=== PATIENT | male | born 1995 | race Hispanic/Latino ===

== ENCOUNTER 2022-11-28 09:12 | Inpatient (IN) | payer BC ==
[2022-11-28 09:51] LABS: #Basophils 0.1 thou/uL (0.0-0.2); #Eosinphils 0.1 thou/uL (0.0-0.7); #Lymphocytes 1.3 thou/uL (1.20-3.40); #Monocytes 0.5 thou/uL (0.11-0.59); #Neutrophils 3.1 thou/uL (1.40-6.50); %Basophils 1.6 % (0.0-1.0); %Eosinophils 1.1 % (0.0-10.0); %Lymphocytes 26.1 % (21.0-51.0); %Monocytes 9.9 % (0.0-10.0); %Neutrophils 61.3 % (42.0-75.0); Hemoglobin 13.5 g/dL (14.0-18.0); Mean Corpuscular HGB CONC 33.7 g/dL (32.0-36.0); Mean Corpuscular Hemoglobin 28.2 pg (27.0-31.0); Mean Corpuscular Volume 83.8 fl (78.0-98.0); Mean Platelet Volume 8.2 fL (7.4-10.4); Platelet Count 181 10x3/uL (130-400); RBC Distribution Width 14.3 % (11.5-14.5); Red Blood Cell (RBC) Count 4.79 mill/uL (4.70-6.10); White Blood Cell (WBC) Count 5.1 10x3/uL (4.8-10.8)
[2022-11-28] MEDS ORDERED: Metoprolol Tartrate 5 MG/5 ML VIAL ONE (10:15)
[2022-11-28 10:18] LABS: ALT (SGPT) 21 U/L (8-55); AST (SGOT) 18 U/L (5-34); Albumin 4.7 g/dL (3.5-5.0); Alkaline Phosphatase 114 U/L (40-110); Anion Gap 16 mmol/L (10-20); BUN (Urea Nitrogen) 12 mg/dL (8.9-20.6); Bilirubin, Total 0.5 mg/dL (0.2-1.2); Calc. Creatinine Clearance 0 mL/min (70-130); Calcium 9.8 mg/dL (7.8-10.44); Carbon Dioxide 23 mmol/L (22-29); Chloride 102 mmol/L (98-107); Estimated GFR 106; Globulin 2.8 g/dL (2.4-3.5); Glucose 75 mg/dL (70-105); Potassium 4.3 mmol/L (3.5-5.1); Protein, Total 7.5 g/dL (6.0-8.3); Sodium 137 mmol/L (136-145)
[2022-11-28 10:44] LABS: Lipase 6 U/L (8-78)
[2022-11-28] MEDS ORDERED: Acetaminophen 500 MG TAB PO PRN (14:13)
[2022-11-28] MEDS ORDERED: Ondansetron ODT 4 MG TAB PO PRN (14:13)
[2022-11-28] MEDS ORDERED: Ondansetron PF 4 MG/2 ML Vial IVP PRN (14:13)
[2022-11-28] MEDS ORDERED: Digoxin 0.5 MG/2 ML AMP SLOW IVP SCH (14:15)
[2022-11-28] MEDS ORDERED: Flecainide 50 MG TAB PO SCH (17:15)
[2022-11-28 17:49] VITALS: BMI 22.8
[2022-11-28] MEDS: Sodium Chloride 0.9% 1,000 ML IV SCH ×3 (18:03→22:05)
[2022-11-28] MEDS: Famotidine 20 MG TAB PO SCH (21:49)
[2022-11-29] MEDS: Sodium Chloride 0.9% 1,000 ML IV SCH ×3 (04:38→11:39)
[2022-11-29 05:07] LABS: #Eosinphils 0.1 thou/uL (0.0-0.7); #Lymphocytes 1.9 thou/uL (1.20-3.40); #Monocytes 0.8 thou/uL (0.11-0.59); #Neutrophils 3.2 thou/uL (1.40-6.50); %Basophils 0.4 % (0.0-1.0); %Eosinophils 2.1 % (0.0-10.0); %Lymphocytes 31.3 % (21.0-51.0); %Monocytes 13.2 % (0.0-10.0); Mean Corpuscular HGB CONC 32.6 g/dL (32.0-36.0); Mean Corpuscular Hemoglobin 27.7 pg (27.0-31.0); Mean Corpuscular Volume 85.1 fl (78.0-98.0); Mean Platelet Volume 8.4 fL (7.4-10.4); Platelet Count 178 10x3/uL (130-400); RBC Distribution Width 14.2 % (11.5-14.5); Red Blood Cell (RBC) Count 3.97 mill/uL (4.70-6.10)
[2022-11-29 05:32] LABS: Anion Gap 11 mmol/L (10-20); BUN (Urea Nitrogen) 12 mg/dL (8.9-20.6); Calc. Creatinine Clearance 90 mL/min (70-130); Calcium 8.3 mg/dL (7.8-10.44); Carbon Dioxide 24 mmol/L (22-29); Chloride 110 mmol/L (98-107); Estimated GFR 96; Glucose 116 mg/dL (70-105); Potassium 4.5 mmol/L (3.5-5.1); Sodium 140 mmol/L (136-145)
[2022-11-29] MEDS ORDERED: Mesalamine DR 400 mg Capsule PO SCH (09:00)
[2022-11-29] MEDS ORDERED: Non-Formulary Item 1 EACH (Mesalamine [Mesalamine] 1.2 GM Tablet.Dr) PO SCH (09:00)
[2022-11-29] MEDS ORDERED: Non-Formulary Item 1 EACH (Dextroamphetamine/Amphetamine [Adderall Xr 20 Mg Capsule] 20 M PO SCH (09:00)
[2022-11-29] MEDS: Famotidine 20 MG TAB PO SCH ×2 (09:30→10:00)
[2022-11-29 12:02] VITALS: BP 119/67; TEMP 98
== END 2022-11-29 14:57 | disposition home or self-care (01) | DRG 309 ==
LOC: ERS 09:12 → 2NO 14:13
PROVIDERS: ADMIT Hospitalist; ATTEND Hospitalist
DX: I48.0 Paroxysmal atrial fibrillation (principal); K51.20 Ulcerative (chronic) proctitis without complications; F90.9 Attention-deficit hyperactivity disorder, unspecified type; Z79.899 Other long term (current) drug therapy
CPT/HCPCS: 36415; 71045; 80048; 80053; 83690; 83735; 84443; 84484; 85025; 93005; 93306; 96374; J7050

== ENCOUNTER 2024-03-10 14:23 | Emergency (ER) | payer BC ==
[2024-03-10 15:15] LABS: #Basophils 0.03 10x3/uL (0.0-0.2); %Basophils 0.3 % (0.0-1.0); %Eosinophils 1.4 % (0.0-10.0); %Neutrophils 71.9 % (42.0-75.0); Hematocrit 45.8 % (42.0-52.0); Hemoglobin 15.1 g/dL (14.0-18.0); Mean Corpuscular Volume 90.9 fL (78.0-98.0); Mean Platelet Volume 8.9 fL (7.4-10.4); Platelet Count 269 10x3/uL (130-400); RBC Distribution Width 12.3 % (11.5-14.5); Red Blood Cell (RBC) Count 5.04 mill/uL (4.70-6.10)
[2024-03-10 15:28] LABS: ALT (SGPT) 26 U/L (8-55); AST (SGOT) 18 U/L (5-34); Albumin 3.9 g/dL (3.5-5.0); Alkaline Phosphatase 100 U/L (40-110); Anion Gap 16 mmol/L (10-20); BUN (Urea Nitrogen) 16 mg/dL (8.9-20.6); Bilirubin, Total 0.6 mg/dL (0.2-1.2); Calc. Creatinine Clearance 0 mL/min (70-130); Calcium 9.8 mg/dL (7.8-10.44); Carbon Dioxide 27 mmol/L (22-29); Chloride 104 mmol/L (98-107); Estimated GFR 92; Globulin 3.8 g/dL (2.4-3.5); Glucose 96 mg/dL (70-105); Potassium 4.7 mmol/L (3.5-5.1); Protein, Total 7.7 g/dL (6.0-8.3); Sodium 142 mmol/L (136-145)
== END 2024-03-10 18:10 | disposition home or self-care (01) ==
LOC: ERS 14:23
DX: K61.1 Rectal abscess (principal)
CPT/HCPCS: 72193; 80053; 85025; 96374; J0665; J1885; Q9967

== ENCOUNTER 2024-03-11 20:41 | Inpatient (IN) | payer BC ==
[~2024-03-11 20:41] MED LIST: Iopamidol-370 76% 500 ML MDV (1 ML CHARGE) ONE
[2024-03-11] MEDS ORDERED: Acetaminophen 500 MG TAB ONE ×2 (21:10→21:54)
[2024-03-11] MEDS ORDERED: Ondansetron ODT 4 MG TAB ONE (21:11)
[2024-03-11 21:44] LABS: Hematocrit 45.2 % (42.0-52.0); Hemoglobin 14.6 g/dL (14.0-18.0); Mean Corpuscular HGB CONC 32.3 g/dL (32.0-36.0); Platelet Count 257 10x3/uL (130-400); RBC Distribution Width 12.2 % (11.5-14.5); Red Blood Cell (RBC) Count 4.86 mill/uL (4.70-6.10)
[2024-03-11 21:58] LABS: ALT (SGPT) 22 U/L (8-55); AST (SGOT) 18 U/L (5-34); Albumin 3.9 g/dL (3.5-5.0); Alkaline Phosphatase 97 U/L (40-110); Anion Gap 14 mmol/L (10-20); BUN (Urea Nitrogen) 14 mg/dL (8.9-20.6); Bilirubin, Total 0.5 mg/dL (0.2-1.2); Calc. Creatinine Clearance 0 mL/min (70-130); Calcium 9.4 mg/dL (7.8-10.44); Carbon Dioxide 28 mmol/L (22-29); Chloride 98 mmol/L (98-107); Estimated GFR 95; Glucose 109 mg/dL (70-105); Potassium 3.7 mmol/L (3.5-5.1); Protein, Total 7.9 g/dL (6.0-8.3); Sodium 136 mmol/L (136-145)
[2024-03-11 22:12] LABS: Band 54 % (5-11); Eosinophils 1 % (0-10); Lymphocytes 7 % (21-51); Monocytes 9 % (0-10); Neutrophil 27 % (42-75); Platelet Adequacy Comment Platelets Normal; Reactive Lymphocytes 1 % (0-10)
[2024-03-11] MEDS ORDERED: Ibuprofen 200 MG TAB ONE (22:21)
[2024-03-11] MEDS ORDERED: Morphine 4 MG/ML VIAL ONE (22:21)
[2024-03-11 23:02] LABS: Magnesium 1.8 mg/dL (1.6-2.6)
[2024-03-11 23:22] LABS: Influenza A by NAA Not Detected (NotDetected); Influenza B by NAA Not Detected (NotDetected); SARS-CoV-2 NAA Rapid Test Not Detected (NotDetected)
[2024-03-12 00:44] LABS: Bacteria/HPF None Seen HPF (None Seen); Bilirubin Negative (Negative); Blood, Urine Negative (Negative); CAUTI Indications for Culture Dysuria,urgency,freq; Clarity Clear (Clear); Glucose, Urine (Dipstick) Normal (Negative); Ketone, Urine 20 mg/dL (Negative); Leukocyte Negative Leu/uL (Negative); Nitrite Negative (Negative); Protein, Urine (Dipstick) 10 mg/dL (Neg-Trace); RBC/HPF 0-3 HPF (0-3); Squamous Epithelial None Seen HPF (0-3); Urobilinogen Normal mg/dL (Less than 2); WBC/HPF 0-3 HPF (0-3)
[2024-03-12 00:45] LABS: Specific Gravity, Urine 1.049 (1.002-1.036)
[2024-03-12 00:46] LABS: Urine Culture Reflex No No
[2024-03-12] MEDS ORDERED: Piperacillin/Tazobactam 4.5 GM VIAL ONE (01:24)
[2024-03-12] MEDS ORDERED: Sodium Chloride 0.9% 100 ML ONE (01:24)
[2024-03-12] MEDS ORDERED: Acetaminophen 325 MG TAB PO PRN (01:27)
[2024-03-12] MEDS ORDERED: traMADol HCl 50 MG TAB PO PRN (01:27)
[2024-03-12] MEDS ORDERED: Enoxaparin 30 MG (0.3 mL) SYRINGE SC SCH ×2 (01:30→09:00)
[2024-03-12] MEDS ORDERED: Morphine 2 MG/ML VIAL SLOW IVP PRN (01:33)
[2024-03-12] MEDS ORDERED: Morphine 4 MG/ML VIAL ONE (01:48)
[2024-03-12] MEDS ORDERED: Enoxaparin 40 MG (0.4 mL) SYRINGE SC SCH ×2 (02:00→21:00)
[2024-03-12 02:26] VITALS: BMI 23.8
[2024-03-12] MEDS: Lactated Ringer's 1,000 ML IV SCH (03:05)
[2024-03-12 03:44] LABS: Hematocrit 38.9 % (42.0-52.0); Hemoglobin 12.6 g/dL (14.0-18.0); Mean Corpuscular HGB CONC 32.4 g/dL (32.0-36.0); Mean Corpuscular Volume 92.6 fL (78.0-98.0); Mean Platelet Volume 9.1 fL (7.4-10.4); Platelet Count 185 10x3/uL (130-400); RBC Distribution Width 12.3 % (11.5-14.5)
[2024-03-12 03:48] LABS: Anion Gap 12 mmol/L (10-20); BUN (Urea Nitrogen) 10 mg/dL (8.9-20.6); Calc. Creatinine Clearance 105 mL/min (70-130); Calcium 8.4 mg/dL (7.8-10.44); Carbon Dioxide 27 mmol/L (22-29); Chloride 99 mmol/L (98-107); Estimated GFR 112; Glucose 106 mg/dL (70-105); Sodium 134 mmol/L (136-145)
[2024-03-12] MEDS: Ondansetron PF 4 MG/2 ML Vial IVP PRN (03:53)
[2024-03-12 04:06] LABS: HIV (1/2) Antibody/Antigen NONREACTIVE (NonReactive); HIV 1/2 INDEX 0.05 S/CO (<1.00)
[2024-03-12 04:35] LABS: Band 49 % (5-11); Lymphocytes 17 % (21-51); Metamyelocyte 1 % (0-0); Monocytes 17 % (0-10); Neutrophil 16 % (42-75); Platelet Adequacy Comment Platelets Normal; Reactive Lymphocytes 1 % (0-10)
[2024-03-12] MEDS: Piperacillin/Tazobactam 3.375 GM in Sodium Chloride 0.9% 100 ML IVPB SCH (05:11)
[2024-03-12] MEDS: methylPREDNISolone Sod Succ 40 MG VIAL IVP SCH (05:12)
[2024-03-12] MEDS ORDERED: Piperacillin/Tazobactam 4.5 GM in Sodium Chloride 0.9% 100 ML IVPB SCH (06:00)
[2024-03-12] MEDS ORDERED: Hydrocortisone Acetate 25 MG Suppository PR SCH (21:00)
[2024-03-12] MEDS: Morphine 4 MG/ML VIAL SLOW IVP PRN (21:37)
[2024-03-13 05:46] LABS: Chlam.trachomatis by PCR,Urine Not Detected (NotDetected); GC N.gonorrhoeae PCR,UrineVOID Not Detected (NotDetected)
[2024-03-13] MEDS ORDERED: Mesalamine DR 400 mg Capsule PO SCH (09:00)
[2024-03-13] MEDS: GoLYTELY 4,000 ml Bottle PO SCH (19:19)
[2024-03-14] MEDS: Pantoprazole 40 MG VIAL IVP SCH (09:00)
[2024-03-14] MEDS ORDERED: Lidocaine 1% PF 5 ML VIAL ONE (09:27)
[2024-03-14] MEDS ORDERED: PROPOFOL 40 ML ONE (09:27)
[2024-03-15 11:43] VITALS: BP 126/75; TEMP 98.4
[2024-03-17 09:16] LABS: QuantiFERON-TB Gold Plus Indeterminate (Negative)
== END 2024-03-15 17:09 | disposition home or self-care (01) | DRG 386 ==
LOC: ERS 20:41 → SJJU 03-12 01:28
PROVIDERS: ADMIT Internal Medicine; ATTEND Internal Medicine
PROC: 0DBG8ZX Excision of Left Large Intestine, Via Natural or Artificial Opening Endoscopic, Diagnostic (ICD-10-PCS; principal; 2024-03-14)
DX: K51.90 Ulcerative colitis, unspecified, without complications (principal); K61.1 Rectal abscess; R65.10 Systemic inflammatory response syndrome (SIRS) of non-infectious origin without acute organ dysfunction; K62.89 Other specified diseases of anus and rectum; F90.9 Attention-deficit hyperactivity disorder, unspecified type; I48.0 Paroxysmal atrial fibrillation; Z91.010 Allergy to peanuts; Z91.018 Allergy to other foods; Z79.899 Other long term (current) drug therapy
CPT/HCPCS: 36415; 71045; 72193; 74177; 80048; 80053; 81001; 83605; 83735; 85025; 86480; 87040; 87324; 87389; 87449; 87491; 87591; 88305; 96374; 96375; 96376; C9113; J0665; J1885; J2270; J2405; J2543; J2704; J2920; J3490; J7120; Q0162; Q9967